=== PATIENT | male | born 1965 | race Hispanic/Latino ===

== ENCOUNTER 2023-01-03 12:10 | Emergency (ER) | payer BC ==
[~2023-01-03] VITALS: Ht 165.1 cm; Wt 74.8 kg
[~2023-01-03 12:10] MED LIST: OMEP40CA21 PO; TRAM50TA4 PO
[2023-01-03] MEDS ORDERED: NAPR375T6 PO (14:47)
[2023-01-03] MEDS ORDERED: ACETAMINOPHEN 500 MG TABLET PO ONE (15:00)
== END 2023-01-03 15:11 | disposition home or self-care (01) ==
LOC: EDH 12:10
DX: K62.89 Other specified diseases of anus and rectum (principal); Z98.890 Other specified postprocedural states
CPT/HCPCS: 99282

== ENCOUNTER → 2025-07-08 | Outpatient (CLI) | payer OTHER ==
[~2025-07-08] MED LIST changes: +NAPR-1505 PO
--- NOTE | 2025-07-08 16:33 | HMCIMG ---
RIGHT HIP, INCLUDING AP PELVIS, RADIOGRAPHS - 2 VIEWS INDICATION: Pain COMPARISON: None FINDINGS: Abduction view of the right hip and single AP view of the pelvis. No acute fracture or subluxation identified. Right hip arthroplasty which appears to be anatomical position. No radiopaque foreign body noted. IMPRESSION: No evidence for fracture or dislocation. Right hip arthroplasty which appears to be anatomical position. Mild osteopenia
--- NOTE | 2025-07-08 16:46 | HMCIMG ---
HIP UNILAT 2-3VW LEFT REASON: TC HIP PAIN TECHNIQUE: 3 views were obtained. FINDINGS: There is no evidence of fracture or dislocation. There are bilateral hip arthroplasty which appears to be anatomical position. There is mild osteopenia.. The soft tissues appear unremarkable. There is no evidence of a radiopaque foreign body. IMPRESSION: No acute findings. Bilateral hip arthroplasty which appears to be anatomical position.
== END | disposition home or self-care (01) ==
LOC: RAH 15:30
PROVIDERS: ATTEND Internal Medicine
DX: M85.88 Other specified disorders of bone density and structure, other site (principal); M25.552 Pain in left hip; M25.551 Pain in right hip; Z96.643 Presence of artificial hip joint, bilateral
CPT/HCPCS: 73502